=== PATIENT | female | born 1955 | race Caucasian/White ===

== ENCOUNTER 2024-07-16 09:49 | Day surgery (SDC) | payer MEDICARE, OTHER ==
[2024-07-16] MEDS: Sodium Chloride 0.9% 1,000 ML IV SCH (10:10)
[2024-07-16] MEDS ORDERED: Propofol 200 MG/20 ML SDV ONE (11:32)
[2024-07-16] MEDS ORDERED: fentaNYL 100 MCG/2 ML SDV ONE (11:32)
== END 2024-07-16 13:30 | disposition home or self-care (01) ==
LOC: JP.SDS 09:49
PROVIDERS: ATTEND Surgery
DX: Z12.11 Encounter for screening for malignant neoplasm of colon (principal); K57.30 Diverticulosis of large intestine without perforation or abscess without bleeding
CPT/HCPCS: G0121; J2704; J3010; J7030; 00812-QZ